=== PATIENT | female | born 2000 | race Caucasian/White ===

== ENCOUNTER → 2021-02-10 11:43 | Outpatient (CLI) | payer OTHER, MEDICAID, SELFPAY ==
--- NOTE | 2021-02-10 11:47 | DI.US.S_ITS ---
PROCEDURE: US OB <= 14 WEEKS FETUS INDICATIONS: DATING AND VIABILITY OUTSIDE/PRIOR DATING DATA: Last menstrual period (LMP): 12/01/2020 LMP-based estimated date of delivery (GA): 09/07/2021. First dating scan (date and location): 02/10/2021. Estimated date of delivery (GA) from first dating scan: 09/26/2021. TECHNIQUE: Real-time scanning was performed of the fetus and maternal pelvic organs, with image documentation. Endovaginal scanning was also performed to better visualize the fetus and maternal ovaries. COMPARISON: None. FINDINGS: Embryo: [place]-rump length measures 12 mm corresponding to 7 weeks 3 days. Mild sac irregularity. Heart rate: 150 Measurement variability in dating: +/- 4 weeks by LMP, +/- 7 days by mean sac diameter (use before 6 weeks gestation if crown-rump length not able to be measured), +/- 5 days by crown-rump length (up to 8 weeks 6 days gestation), +/- 7 days by crown-rump length (up to 13 weeks 6 days gestation). Maternal organs: Ovaries within normal limits, with left corpus luteal cyst . IMPRESSION: Mild sac irregularity; otherwise 10 week 1 day single living IUP identified. Dictated by: Julio César Hill RRA Interpreted: Juan Parekh MD on 02/10/2021 at 12:45 Transcribed by: GIOVANNA on 02/10/2021 at 12:47 Approved by: Juan Parekh M.D. on 02/10/2021 at 16:26
[2021-02-10 13:14] LABS: Add Manual Diff / Slide Review NO; Basophils Absolute Auto 100 /uL (0-100); Basophils Percent Auto 0.8 % (0-2); Eosinophils Absolute Auto 800 /uL (0-450); Eosinophils Percent Auto 7.6 % (2-4); Hematocrit 37.8 % (36-46); Hemoglobin 12.7 g/dL (12.0-16.0); Lymphocytes Absolute Auto 2400 /uL (1100-4500); Lymphocytes Percent Auto 23.3 % (25-40); Mean Corpuscular HGB Conc 33.6 % (30-36); Mean Corpuscular Hemoglobin 28.8 PG (26-34); Mean Corpuscular Volume 85.8 fL (80-100); Monocytes Absolute Auto 700 /uL (0-900); Monocytes Percent Auto 6.7 % (3-14); Neutrophils Absolute Auto 6200 /uL (1500-7000); Neutrophils Percent Auto 61.6 % (50-75); Platelet Count 279 X10^3/uL (150-400); Red Blood Cell Count 4.41 X10^6/uL (4.0-5.2); Red Cell Distribution Width 13.4 % (11.6-14.8); White Blood Cell Count 10.1 X10^3/uL (4.5-11.0)
[2021-02-10 14:33] LABS: Appearance Urine UA CLEAR; Bilirubin Urine UA NEGATIVE (NEGATIVE); Color Urine UA YELLOW; Glucose Urine UA NEGATIVE (Negative); Ketones Urine UA NEGATIVE (NEGATIVE); Leukocyte Esterase Urine UA NEGATIVE (NEGATIVE); Nitrite Urine UA NEGATIVE (Negative); Occult Blood Urine UA NEGATIVE (Negative); Protein Urine UA NEGATIVE (Negative); Specific Gravity Urine UA 1.015 (1.000-1.035); Urobilinogen Urine UA 0.2 E.U./dL (0.2)
[2021-02-10 20:49] LABS: HIV 1 & 2 Ab/Ag 4th Gen Combo NEGATIVE (NEGATIVE); Hep C Virus Ab w/Reflex Quant NEGATIVE s/c (NEGATIVE); Hepatitis B Surface Antigen NEGATIVE s/c (NEGATIVE); Rubella Antibody IgG 14.9 IU/mL (>15)
[2021-02-11 06:36] LABS: RPR Screen Non Reactive (Non Reactive)
[2021-02-11 08:09] LABS: Varicella IgG Antibody <135 index (Immune >165)
== END ==
PROVIDERS: Referring Provider Obstetrics & Gynecology; Visit Provider Obstetrics & Gynecology
DX: Z34.01 Encounter for supervision of normal first pregnancy, first trimester (principal); Z3A.10 10 weeks gestation of pregnancy
CPT/HCPCS: 36415; 76801; 76817; 80055; 81003; 86787; 86803; 86850; 86900; 86901; 87086; 87389

== ENCOUNTER → 2021-02-27 12:23 | Outpatient (CLI) | payer OTHER, MEDICAID, SELFPAY ==
[2021-02-27 16:51] LABS: Urine N gonorrhoeae NOT DETECTED
[2021-02-27 16:57] LABS: Urine Chlamydia NOT DETECTED
== END ==
PROVIDERS: Visit Provider Obstetrics & Gynecology
DX: Z34.01 Encounter for supervision of normal first pregnancy, first trimester (principal); Z11.3 Encounter for screening for infections with a predominantly sexual mode of transmission; Z3A.09 9 weeks gestation of pregnancy
CPT/HCPCS: 87491; 87591

== ENCOUNTER → 2021-06-19 12:56 | Outpatient (CLI) | payer OTHER, MEDICAID, SELFPAY ==
[2021-06-19 20:31] LABS: COVID19 - ORCAS (NP or Nasal) Negative (Negative)
== END ==
PROVIDERS: PCP Physician Assistant; Referring Provider Physician Assistant; Visit Provider Physician Assistant
DX: Z20.822 Contact with and (suspected) exposure to COVID-19 (principal)
CPT/HCPCS: U0003

== ENCOUNTER 2021-06-22 18:36 | Observation (INO) | payer OTHER, MEDICAID, SELFPAY ==
--- NOTE | 2021-06-22 18:49 | DI.US.S_ITS ---
PROCEDURE: US OB TRANSVAGINAL INDICATIONS: CERVICAL LENGTH OUTSIDE/PRIOR DATING DATA: Last menstrual period (LMP): 12/01/20. LMP-based estimated date of delivery (GA): 09/07/21. First dating scan (date and location): 02/10/21. Estimated date of delivery (GA) from first dating scan: 09/26/21. TECHNIQUE: Real-time scanning was performed of the fetus, with image documentation. COMPARISON: None. FINDINGS: A single living intrauterine gestation is present. Presentation: breech. Placenta: Placental position is anterior right, without previa. Amniotic fluid index: 10.8 cm, normal range is 5-24 cm. Single deepest vertical pocket is 3.3 cm. heart rate: 147 beats per minute. Maternal cervical canal: 2.2 cm/2.6 cm long on 2 measurements. Normal lower limit is 2.5 cm. There is a small amount of endocervical fluid along the length of the cervix. There is mild V-shaped funneling at the internal cervical os. Estimated gestational age from initial scan: 26 weeks 2 days. IMPRESSION: 1. Single living intrauterine redemonstrated in breech presentation. 2. Short cervix with endocervical fluid and mild V-shaped funneling at the internal cervical os. Dictated by: Thomas Bianchi M.D. on 06/22/2021 at 20:20 Approved by: Thomas Bianchi M.D. on 06/22/2021 at 20:34
--- NOTE | 2021-06-22 19:09 | PM.OBTRLD ---
Visit Information Visit Information Date of evaluation: 06/22/21 Primary OB Provider: Michelle Hills On-call OB Provider: Renata Simpson Reason for Evaluation: Yes pre-term labor Comments/Additional reasons for admission: 21YO @ 26wks 2 days by 7wk US. Regular cramping 6-8x/hr since early afternoon. Cramping slowed a little with PO hydration, then intensified again. +FM. No VB or LOF. Established PN care w/ @ [facility] w/ 7wk dating US and full PN panel. Was then lost to care until episode of contractions warranted helicopter medical flight from [facility] to [facility]. Had anatomy scan US which revealed CL of 2.5cm w/ funneling. She was discharged from [facility] on progesterone 200mg PO. Betamethasone was NOT given. Patient then established care w/ [facility] in [place] on 06/17/21 and was referred to M. Has not yet been seen by M. , Jaison is present and supportive. Vital Signs Vital Signs: BP 123/64mmHg, HR 71 bpm, T 36.8C Temporal [facility] Medical History Acne (~2012) ADHD Allergic rhinitis Anxiety (~2013) Asthma Bronchitis Chronic post-traumatic stress disorder (PTSD) Depression (~2013) Endometriosis (~2018) Fatigue History of irregular heartbeat Irregular menstrual cycle (~2012) Mitral valve prolapse Painful menstrual periods (~2012) Pneumonia PTSD (post-traumatic stress disorder) (~2013) Surgical History Anesthesia [place] teeth extracted Family History Father ADD (attention deficit disorder) Healthy adult male Mother Irregular heart rate Hypertension Anxiety Mental health problem Bipolar 1 disorder Mitral valve prolapse Grandfather History of prediabetes Breakdown of skin tissue Grandmother Enlarged heart Arthritis Chronic pain Endometriosis Fibroids Anxiety Grandfather Cancer Kidney failure COVID-19 Back pain History of ETOH abuse Grandmother No problems noted. Sister Anxiety Sister No problems noted. 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[employer]) current occupational exposures/hazards: No ellis/bahai: Oriental Orthodox special ellis needs: Yes (Would appreciate a Hot Mill Supervisor to do the Last Rites, if it came to it.) Smoking Status: Never smoker second hand exposure: No alcohol intake: former (pre- : from [id number] social ) substance use type: does not use Review of Systems Review of Systems ROS: Yes All systems reviewed with the patient and are negative except as otherwise documented Exam Vital Signs (past 8 hours): BP 123/64mmHg, HR 71bpm, T 36.8 C temporal External Female Exam: normal external appearance Speculum Exam - Vagina: normal appearance of the vagina Speculum Exam - Cervix: cervical os open (0.5-1 cm visually) and nulliparous OB/External & Speculum: cervical os open (0.5-1 cm visually) Presentation: full/complete breech Other: fFN collected and sent [facility] US OB transvaginal- cervical length: My impression: television script writer reported 2 measurements: 2.19cm then 2.57cm. DESTINY: 10.9cm. Breech presentation. Formal report pending. Labs Labs: fFN- NEGATIVE (resulted prior to transfer) GBS PCR and GBS culture pending Evaluation Evaluation Baseline heart rate: 145 monitor accelerations: Present Monitor Decelerations: Absent Diagnosis, Plan/Disposition Final Diagnosis (1) labor: Status: Acute Plan/Disposition Plan: contractions with incremental cervical change. Betamethasone 12mg IM given. IV started with 1L LR IVFB and MgSO4 4 gram load initiated for transport. Consulted Dr. Porter @ [facility] who is in agreement with plan of care and accepts transfer of care. Transfer by ambulance initiated. OB Disposition: tertiary care transfer
[2021-06-22] MEDS: LACTATED RINGERS 1,000 ML 1000 ML IV (19:51)
[2021-06-22] MEDS: BETAMETHASONE 30 MG/5 ML MDV 12 MG IM (19:52)
[2021-06-22 20:29] LABS: Fetal Fibronectin Negative
[2021-06-22] MEDS: LACTATED RINGERS 1,000 ML 150 ML IV (20:39)
[2021-06-22] MEDS: MAGNESIUM SULFATE 4 GM/100 ML PIGGYBACK IV (20:39)
[2021-06-22 20:43] LABS: Appearance Urine UA CLEAR; Bilirubin Urine UA NEGATIVE (NEGATIVE); Color Urine UA YELLOW; Glucose Urine UA TRACE g/dL (Negative); Ketones Urine UA NEGATIVE (NEGATIVE); Leukocyte Esterase Urine UA NEGATIVE (NEGATIVE); Nitrite Urine UA NEGATIVE (Negative); Occult Blood Urine UA NEGATIVE (Negative); Protein Urine UA NEGATIVE (Negative); Urobilinogen Urine UA 0.2 E.U./dL (0.2)
[2021-06-22 20:57] LABS: Bacteria Urine None Seen; Culture Indicated Urine Cult Not Indicated; RBC Urine None Seen (0-5/HPF); Squamous Epithelial Cell Urine 0-1 /HPF (0-5/HPF); WBC Urine 0-1/HPF (0-5/HPF)
[2021-06-23 03:57] LABS: Strep Grp B PCR NEG for Grp B Strep
== END 2021-06-22 23:00 | disposition home or self-care (01) ==
PROVIDERS: Admitting Provider Nurse Practitioner Obstetrics & Gynecology; PCP Physician Assistant; Referring Provider Nurse Practitioner Obstetrics & Gynecology; Visit Provider Nurse Practitioner Obstetrics & Gynecology
DX: O60.02 Preterm labor without delivery, second trimester (principal); Z3A.26 26 weeks gestation of pregnancy
CPT/HCPCS: 59050; 76817; 81001; 82731; 87081; 87653; G0378; G0379; J0702; J3475

== ENCOUNTER 2021-06-25 09:02 | Emergency (ER) | payer OTHER, MEDICAID, SELFPAY ==
[2021-06-25] VITALS (14 sets, daily range): BP systolic 109–132; BP diastolic 55–76; PULSE 57–73; RESP 16–32; TEMP 36.9; O2SAT 97–100; BMI 24.4
[2021-06-25 09:38] LABS: Add Manual Diff / Slide Review NO; Basophils Absolute Auto 0 /uL (0-100); Basophils Percent Auto 0.2 % (0-2); Eosinophils Absolute Auto 100 /uL (0-450); Eosinophils Percent Auto 0.5 % (2-4); Hematocrit 32.4 % (36-46); Hemoglobin 10.9 g/dL (12.0-16.0); Lymphocytes Absolute Auto 2900 /uL (1100-4500); Lymphocytes Percent Auto 19.6 % (25-40); Mean Corpuscular HGB Conc 33.6 % (30-36); Mean Corpuscular Hemoglobin 29.7 PG (26-34); Mean Corpuscular Volume 88.2 fL (80-100); Monocytes Absolute Auto 1300 /uL (0-900); Monocytes Percent Auto 8.4 % (3-14); Neutrophils Absolute Auto 10600 /uL (1500-7000); Neutrophils Percent Auto 71.3 % (50-75); Platelet Count 296 X10^3/uL (150-400); Red Blood Cell Count 3.68 X10^6/uL (4.0-5.2); Red Cell Distribution Width 13.4 % (11.6-14.8); White Blood Cell Count 14.9 X10^3/uL (4.5-11.0)
[2021-06-25 09:49] LABS: D Dimer 1048 ng/mL (<230)
[2021-06-25 10:02] LABS: Alanine Aminotransferase 14 IU/L (<35); Albumin 3.8 g/dL (3.5-5.0); Albumin Globulin Ratio 1.2 (1.0-2.8); Alkaline Phosphatase 70 U/L (38-126); Aspartate Aminotransferase 24 IU/L (14-36); BUN Creatinine Ratio 10.4 (6-22); Bilirubin Total 0.3 mg/dL (0.2-1.3); Blood Urea Nitrogen 5 mg/dL (7-17); Calcium 8.9 mg/dL (8.4-10.2); Carbon Dioxide 25 mmol/L (22-32); Chloride 107 mmol/L (98-107); Estimated Glomerular Filt Rate > 60.0 mL/min (>60); Globulin 3.1 g/dL (1.7-4.1); Glucose 83 mg/dL (70-100); HEMOLYSIS < 15 (0-50); Potassium 3.7 mmol/L (3.4-5.1); Sodium 138 mmol/L (137-145); Total Protein 6.9 g/dL (6.3-8.2)
[2021-06-25 10:55] LABS: Appearance Urine UA CLEAR; Bilirubin Urine UA NEGATIVE (NEGATIVE); Color Urine UA YELLOW; Glucose Urine UA NEGATIVE (Negative); Ketones Urine UA NEGATIVE (NEGATIVE); Leukocyte Esterase Urine UA NEGATIVE (NEGATIVE); Nitrite Urine UA NEGATIVE (Negative); Occult Blood Urine UA NEGATIVE (Negative); Protein Urine UA NEGATIVE (Negative); Urobilinogen Urine UA 0.2 E.U./dL (0.2)
[2021-06-25 11:00] LABS: Bacteria Urine Moderate (10-30); RBC Urine 0-1/HPF (0-5/HPF); Squamous Epithelial Cell Urine 1-5 /HPF (0-5/HPF); WBC Urine 0-1/HPF (0-5/HPF)
[2021-06-25 11:01] LABS: Culture Indicated Urine Cult Not Indicated
--- NOTE | 2021-06-25 11:14 | ED.GENADULT ---
HPI - General Adult General Chief complaint: Shortness of Breath/Dyspnea Stated complaint: sob /dizzy Time Seen by Provider: 06/25/21 09:16 Source: patient Mode of arrival: Ambulatory History of Present Illness HPI narrative: 21-year-old with recent hospital admission for pre term labor currently at 26 weeks gestational age presents with shortness of breath and central chest tightness that is worsened over the last 24 hours. She was hospitalized over last week with pre term labor. She tested negative for COVID yesterday does not have any fever. She is not complaining of palpitations. She notes that she tried her inhaler and it was not particularly effective in alleviating her sense of dyspnea. She does not note any lower extremity edema. On arrival she is not tachycardic or hypoxic but does look visibly dyspneic Related Data Home Medications Medication Instructions Recorded Confirmed albuterol sulfate 90 mcg/actuation 2 puff INHALATION Q6H PRN 02/20/21 02/20/21 aerosol inhaler prenat.vits,eleanor,[id number]-[id number] 1 tab PO DAILY 02/20/21 02/20/21 Previous Rx's Medication Instructions Recorded citalopram 10 mg tablet (Celexa) 10 mg PO DAILY #30 tab 02/27/21 albuterol sulfate 90 mcg/actuation 2 puff INHALATION 6XD PRN #8.5 g 06/25/21 aerosol inhaler Allergies Allergy/AdvReac Type Severity Reaction Status Date / Time Penicillins AdvReac Severe Bad hives Verified 02/27/21 12:10 that last for weeks Review of Systems Review of Systems Narrative: Remainder of complete review of systems is otherwise unremarkable except for that included in the HPI. Patient History Medical History Acne (~2012) ADHD Allergic rhinitis Anxiety (~2013) Asthma Bronchitis Chronic post-traumatic stress disorder (PTSD) Depression (~2013) Endometriosis (~2017) Fatigue History of irregular heartbeat Irregular menstrual cycle (~2012) Mitral valve prolapse Painful menstrual periods (~2012) Pneumonia PTSD (post-traumatic stress disorder) (~2013) Surgical History Anesthesia [place] teeth extracted Family History Father ADD (attention deficit disorder) Healthy adult male Mother Irregular heart rate Hypertension Anxiety Mental health problem Bipolar 1 disorder Mitral valve prolapse Grandfather History of prediabetes Breakdown of skin tissue Grandmother Enlarged heart Arthritis Chronic pain Endometriosis Fibroids Anxiety Grandfather Cancer Kidney failure COVID-19 Back pain History of ETOH abuse Grandmother No problems noted. Sister Anxiety Sister No problems noted. 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[employer]) current occupational exposures/hazards: No ellis/sikh: Faith special ellis needs: Yes (Would appreciate a Funeral Car Chauffeur to do the Last Rites, if it came to it.) Smoking Status: Never smoker second hand exposure: No alcohol intake: former (pre- : from [employer] social ) substance use type: does not use Smoking Status: Never smoker Substance Use Type: does not use Exam Initial Vital Signs Initial Vital Signs: Vital Signs Pulse Rate 64 06/25/21 09:16 Respiratory Rate 19 06/25/21 09:16 Blood Pressure 132/68 06/25/21 09:16 Pulse Oximetry 99 06/25/21 09:16 General: Anxious appearing visibly dyspneic but Able to give a complete and coherent history. Well-nourished well-developed HEENT: Moist mucous membranes, normal sclera with reactive pupils, Neck: No JVD, supple Respiratory: Lungs are clear to auscultation, no wheezing no rales no rhonchi. Full and symmetrical air movement Cardiac: Regular rate and rhythm no murmurs no bruits Abdomen: Soft, gravid, nontender, good bowel tones, no flank pain Skin: Warm and dry, no rashes Neurologic: Grossly neurologically intact with no obvious asymmetries or abnormalities Extremities: No trauma, well perfused Psych: Cooperative, appropriate insight and affect heart tones at 150 Course Orders Ordered: ED Orders 06/25/21 09:05 Complete Blood Count AUTO DIFF Stat Comprehensive Metabolic Panel Stat D Dimer Stat 06/25/21 10:30 Urinalysis and Microscopic Stat 06/25/21 11:40 COVID19 -Nasal swab/Pre-Proc Stat Discontinued Medications Albuterol (Albuterol 2.5 Mg/3 Ml Neb (Adult)) 2.5 mg INH NOW ONE Stop: 06/25/21 11:42 Last Admin: 06/25/21 12:29 Dose: 2.5 mg Documented by: VANDANA Vital Signs Vital signs: Vital Signs - 8 hr 06/25/21 09:16 06/25/21 09:20 06/25/21 09:30 Temperature 98.4 F Pulse Rate 64 64 58 L Respiratory Rate 19 22 18 Blood Pressure 132/68 132/68 122/76 Pulse Oximetry 99 100 100 06/25/21 10:00 06/25/21 10:30 06/25/21 11:00 Temperature Pulse Rate 57 L 64 57 L Respiratory Rate 26 H 19 22 Blood Pressure 109/63 109/68 110/58 L Pulse Oximetry 98 98 99 06/25/21 11:20 06/25/21 11:30 06/25/21 11:54 Temperature Pulse Rate 58 L Respiratory Rate 32 H 22 Blood Pressure 112/67 Pulse Oximetry 99 06/25/21 12:00 06/25/21 12:35 Temperature Pulse Rate 60 66 Respiratory Rate 21 16 Blood Pressure 112/62 Pulse Oximetry 98 98 Medical Decision Making Lab Data Result diagrams: 06/25/21 09:05 06/25/21 09:05 Labs: Lab Results 06/25/21 06/25/21 06/25/21 Range/Units 09:05 09:05 09:05 WBC 14.9 H (4.5-11.0) X10^3/uL RBC 3.68 L (4.0-5.2) X10^6/uL Hgb 10.9 L (12.0-16.0) g/dL Hct 32.4 L (36-46) % MCV 88.2 (80-100) fL MCH 29.7 (26-34) PG MCHC 33.6 (30-36) % RDW 13.4 (11.6-14.8) % Plt Count 296 (150-400) X10^3/uL Neut % (Auto) 71.3 (50-75) % Lymph % (Auto) 19.6 L (25-40) % Swain % (Auto) 8.4 (3-14) % Eos % (Auto) 0.5 L (2-4) % Baso % (Auto) 0.2 (0-2) % Neut # (Auto) 60441 H (9647-5425) /uL Lymph # (Auto) 2900 (8187-0590) /uL Swain # (Auto) 1300 H (0-900) /uL Eos # (Auto) 100 (0-450) /uL Baso # (Auto) 0 (0-100) /uL D-Dimer 1048 H (<230) ng/mL Sodium 138 (137-145) mmol/L Potassium 3.7 (3.4-5.1) mmol/L Chloride 107 (98-107) mmol/L Carbon Dioxide 25 (22-32) mmol/L BUN 5 L (7-17) mg/dL Creatinine 0.48 L (0.52-1.04) mg/dL Estimated GFR > 60.0 (>60) mL/min BUN/Creatinine Ratio 10.4 (6-22) Glucose 83 (70-100) mg/dL Calcium 8.9 (8.4-10.2) mg/dL Total Bilirubin 0.3 (0.2-1.3) mg/dL AST 24 (14-36) IU/L ALT 14 (<35) IU/L Alkaline Phosphatase 70 (38-126) U/L Total Protein 6.9 (6.3-8.2) g/dL Albumin 3.8 (3.5-5.0) g/dL Globulin 3.1 (1.7-4.1) g/dL Albumin/Globulin Ratio 1.2 (1.0-2.8) Urine Color Urine Appearance Urine pH (4.5-8.0) Ur Specific [place] (1.000-1.035) Urine Protein (Negative) Urine Glucose (UA) (Negative) g/dL Urine Ketones (NEGATIVE) Urine Occult Blood (Negative) Urine Nitrate (Negative) Urine Bilirubin (NEGATIVE) Urine Urobilinogen (0.2) E.U./dL Ur Leukocyte Esterase (NEGATIVE) Urine RBC (0-5/HPF) Urine WBC (0-5/HPF) Ur Squamous Epith Cells (0-5/HPF) Urine Bacteria (None) Ur Culture Indicated? SARS-CoV-2 (PCR) (Negative) 06/25/21 06/25/21 Range/Units 10:30 11:40 WBC (4.5-11.0) X10^3/uL RBC (4.0-5.2) X10^6/uL Hgb (12.0-16.0) g/dL Hct (36-46) % MCV (80-100) fL MCH (26-34) PG MCHC (30-36) % RDW (11.6-14.8) % Plt Count (150-400) X10^3/uL Neut % (Auto) (50-75) % Lymph % (Auto) (25-40) % Swain % (Auto) (3-14) % Eos % (Auto) (2-4) % Baso % (Auto) (0-2) % Neut # (Auto) (7381-3394) /uL Lymph # (Auto) (8175-4409) /uL Swain # (Auto) (0-900) /uL Eos # (Auto) (0-450) /uL Baso # (Auto) (0-100) /uL D-Dimer (<230) ng/mL Sodium (137-145) mmol/L Potassium (3.4-5.1) mmol/L Chloride (98-107) mmol/L Carbon Dioxide (22-32) mmol/L BUN (7-17) mg/dL Creatinine (0.52-1.04) mg/dL Estimated GFR (>60) mL/min BUN/Creatinine Ratio (6-22) Glucose (70-100) mg/dL Calcium (8.4-10.2) mg/dL Total Bilirubin (0.2-1.3) mg/dL AST (14-36) IU/L ALT (<35) IU/L Alkaline Phosphatase (38-126) U/L Total Protein (6.3-8.2) g/dL Albumin (3.5-5.0) g/dL Globulin (1.7-4.1) g/dL Albumin/Globulin Ratio (1.0-2.8) Urine Color Yellow Urine Appearance Clear Urine pH 7.0 (4.5-8.0) Ur Specific [place] 1.010 (1.000-1.035) Urine Protein Negative (Negative) Urine Glucose (UA) Negative (Negative) g/dL Urine Ketones Negative (NEGATIVE) Urine Occult Blood Negative (Negative) Urine Nitrate Negative (Negative) Urine Bilirubin Negative (NEGATIVE) Urine Urobilinogen 0.2 (0.2) E.U./dL Ur Leukocyte Esterase Negative (NEGATIVE) Urine RBC 0-1/hpf (0-5/HPF) Urine WBC 0-1/hpf (0-5/HPF) Ur Squamous Epith Cells 1-5 /hpf (0-5/HPF) Urine Bacteria Moderate (10-30) H (None) Ur Culture Indicated? Cult not indicated SARS-CoV-2 (PCR) Negative (Negative) MDM Narrative Medical decision making narrative: 21-year-old woman at 26 weeks gestational age with recent hospitalization for pre term labor comes in with dyspnea. She does have a history of mild exercise-induced asthma. She used her inhaler, which she really needs, this morning and found that was not helpful in relieving her dyspnea. On exam she is not tachypneic, blood pressure is reassuring. Labs do not suggest significant anemia, infection, cardiomyopathy, PE is low given her D-dimer findings. D-dimer is elevated at 1048, within expected conservative ranges for D-dimer in 2nd trimester range being 298-1653ng/mL as well as low heart rate and no evidence of hypoxia. At this time I do not have an alternate explanation for her dyspnea. She did do a nebulizer with albuterol in the emergency department and feels that the pressure was somewhat relieved. And finding no life-threatening explanation for her symptoms. Labor and delivery nurses have come over and confirmed reassuring heart tones. She is not having increased contractions and cervix is not examined in the emergency department At this time she is safe for home discharge and will suggest that she use her albuterol 3 times a day and when she is having increased chest tightness. Discharge Plan Departure Patient Disposition: Home Clinical Impression: Dyspnea Qualifiers: Dyspnea type: shortness of breath Qualified Code(s): R06.02 - Shortness of breath Asthma Qualifiers: Asthma severity: mild Asthma persistence: intermittent Asthma complication type: uncomplicated Qualified Code(s): J45.20 - Mild intermittent asthma, uncomplicated Instructions: DI for Asthma -- Adult Activity Restrictions/Additional Instructions: Thank you for coming in today I did not find any life-threatening explanations for your shortness of breath today. Specifically there is no blood clot in your lungs, no heart attack, no severe anemia and nothing that would require additional hospitalization or interventions. Once again, you do not have COVID You stated that the dyspnea was a bit less after the nebulizer treatment in the emergency department. I would recommend that you use your albuterol 3 times a day over the next week and you can use an additional 2 puffs if your feeling short of breath as needed. A prescription was electronically transmitted to [facility] for you. If you feel that you are getting worse, please return to the ER Prescriptions: New albuterol sulfate 90 mcg/actuation HFA aerosol inhaler 2 puff inhalation 6XD PRN (Reason: shortness of breath or wheezing) Qty: 8.5 0RF No Action prenat.vits,eleanor,qdr-qavx-copik Tablet 1 tab PO DAILY 0RF albuterol sulfate 90 mcg/actuation HFA aerosol inhaler 2 puff inhalation Q6H PRN0RF citalopram [Celexa] 10 mg tablet 10 mg PO DAILY Qty: 30 6RF Referrals: Amanda Johns PA-C [Primary Care Provider] -
[2021-06-25 12:14] LABS: COVID19 -Nasal RAPID Negative (Negative)
[2021-06-25] MEDS: ALBUTEROL 2.5 MG/3 ML NEB (ADULT) INH (12:29)
--- NOTE | 2021-06-25 13:15 | PC.NURSE ---
MEGAN Warren from center reports baby's heart rate is in the 150s. Notified MEGAN Tao.
== END 2021-06-25 13:45 | disposition home or self-care (01) ==
PROVIDERS: Emergency Provider Emergency Medicine; PCP Physician Assistant
DX: O26.892 Other specified pregnancy related conditions, second trimester (principal); J45.20 Mild intermittent asthma, uncomplicated; R06.00 Dyspnea, unspecified; Z3A.26 26 weeks gestation of pregnancy; Z20.822 Contact with and (suspected) exposure to COVID-19
CPT/HCPCS: 36415; 80053; 81001; 85025; 85379; 87635; 94640; 99283; C9803; J7613

== ENCOUNTER → 2021-07-12 07:05 | Outpatient (CLI) | payer OTHER, MEDICAID, SELFPAY ==
[2021-07-12 08:03] LABS: Hemoglobin 11.4 g/dL (12.0-16.0); Mean Corpuscular HGB Conc 33.5 % (30-36); Mean Corpuscular Hemoglobin 29.4 PG (26-34); Mean Corpuscular Volume 87.7 fL (80-100); Platelet Count 259 X10^3/uL (150-400); Red Blood Cell Count 3.88 X10^6/uL (4.0-5.2); Red Cell Distribution Width 13.4 % (11.6-14.8); White Blood Cell Count 7.6 X10^3/uL (4.5-11.0)
[2021-07-12 08:20] LABS: Glucose Fasting 82 mg/dL (70-100)
[2021-07-12 09:17] LABS: Glucose 1 Hour 126 mg/dL (70-170)
[2021-07-12 09:23] LABS: Glucose Tol Interpretation INTERPRETATION
[2021-07-12 11:15] LABS: Glucose 2 Hour 115 mg/dL (70-140)
== END ==
PROVIDERS: PCP Physician Assistant; Referring Provider Nurse Practitioner Obstetrics & Gynecology; Visit Provider Nurse Practitioner Obstetrics & Gynecology
DX: Z34.90 Encounter for supervision of normal pregnancy, unspecified, unspecified trimester (principal); Z3A.26 26 weeks gestation of pregnancy
CPT/HCPCS: 36415; 82951; 82952; 85027

== ENCOUNTER 2021-08-10 14:25 | Observation (INO) | payer OTHER, MEDICAID, SELFPAY ==
--- NOTE | 2021-08-10 14:48 | P.TNLD_ITS ---
Visit Information Visit Information Date of evaluation: 08/10/21 Primary OB Provider: Michelle Hills On-call OB Provider: Renata Simpson Reason for Evaluation: Yes pre-term labor Comments/Additional reasons for admission: 21YO @ 33wks 2days by 7wk US.? Has struggled with contraction since 22wks of , previously admitted at 22 and 28 weeks for evaluation and received betamethasone @ 28 weeks. . Contractions today have been worse that she's previously experienced and took a ferry off [facility] at 1245 today. +FM.? No VB or LOF.? No urinary sx or abnormal vaginal discharge. Vital Signs Vital Signs: BP 115/64mmHg, HR 66bpm, T 36.4C Temporal PFSH Medical History Acne (~2012) ADHD Allergic rhinitis Anxiety (~2013) Asthma Bronchitis Chronic post-traumatic stress disorder (PTSD) Depression (~2013) Endometriosis (~2017) Fatigue History of irregular heartbeat Irregular menstrual cycle (~2012) Mitral valve prolapse Painful menstrual periods (~2012) Pneumonia PTSD (post-traumatic stress disorder) (~2013) Surgical History Anesthesia [place] teeth extracted Family History Father ADD (attention deficit disorder) Healthy adult male Mother Irregular heart rate Hypertension Anxiety Mental health problem Bipolar 1 disorder Mitral valve prolapse Grandfather History of prediabetes Breakdown of skin tissue Grandmother Enlarged heart Arthritis Chronic pain Endometriosis Fibroids Anxiety Grandfather Cancer Kidney failure COVID-19 Back pain History of ETOH abuse Grandmother No problems noted. Sister Anxiety Sister No problems noted. 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[employer]) current occupational exposures/hazards: No ellis/confucianist: Adventism special ellis needs: Yes (Would appreciate a Pharmacy Picking Technician to do the Last Rites, if it came to it.) Smoking Status: Never smoker second hand exposure: No alcohol intake: former (pre- : from [id number] social ) substance use type: does not use Review of Systems Review of Systems ROS: Yes All systems reviewed with the patient and are negative except as otherwise documented Exam Vital Signs (past 8 hours): see above Presentation: vertex Evaluation Evaluation Baseline heart rate: 135 Variability: Moderate (11-25) monitor accelerations: Present Monitor Decelerations: Absent Contraction Frequency (minutes): 5 Uterine Contraction Intensity: Mild Category of Tracing: Reactive Status: Category l Cervical dilation (cm): 1 Cervical effacement (%): 50 station: -2 Comments: fFN- NEGATIVE Repeat CE after 3 hours- unchanged Diagnosis, Plan/Disposition Final Diagnosis (1) uterine contractions in third trimester, antepartum: Status: Acute Plan/Disposition Plan: Reassurance given for no labor. Enocuraged continued minimal activity, rest and hydration. Work note provided. Discussed this level of intensity as her nw baseline and encouraged her to call if regular contractions occur that are stronger than today. RTC as previously scheduled.
[2021-08-10 15:33] LABS: Fetal Fibronectin Negative
[2021-08-10 15:57] LABS: Appearance Urine UA CLEAR; Bilirubin Urine UA NEGATIVE (NEGATIVE); Color Urine UA YELLOW; Glucose Urine UA NEGATIVE (Negative); Ketones Urine UA NEGATIVE (NEGATIVE); Leukocyte Esterase Urine UA TRACE (NEGATIVE); Nitrite Urine UA NEGATIVE (Negative); Occult Blood Urine UA NEGATIVE (Negative); Protein Urine UA NEGATIVE (Negative); Urobilinogen Urine UA 0.2 E.U./dL (0.2)
[2021-08-10 16:18] LABS: pH Urine UA 7.5 (4.5-8.0)
[2021-08-10 16:19] LABS: Bacteria Urine Few (2-10); Culture Indicated Urine Specimen Cultured; RBC Urine None Seen (0-5/HPF); Squamous Epithelial Cell Urine 0-1 /HPF (0-5/HPF); Transitional Epi Cells Urine 0-1/HPF (0-5/HPF); WBC Urine 0-1/HPF (0-5/HPF)
[2021-08-10] MEDS: LACTATED RINGERS 1,000 ML 1000 ML IV (17:00)
[2021-08-10 18:14] LABS: Appearance Urine UA CLEAR; Bilirubin Urine UA NEGATIVE (NEGATIVE); Color Urine UA YELLOW; Glucose Urine UA NEGATIVE (Negative); Ketones Urine UA NEGATIVE (NEGATIVE); Leukocyte Esterase Urine UA NEGATIVE (NEGATIVE); Nitrite Urine UA NEGATIVE (Negative); Occult Blood Urine UA NEGATIVE (Negative); Protein Urine UA NEGATIVE (Negative); Urobilinogen Urine UA 0.2 E.U./dL (0.2)
[2021-08-10 18:23] LABS: pH Urine UA 7.5 (4.5-8.0)
[2021-08-10 18:25] LABS: Bacteria Urine None Seen; Culture Indicated Urine Cult Not Indicated; RBC Urine None Seen (0-5/HPF); Squamous Epithelial Cell Urine 0-1 /HPF (0-5/HPF); WBC Urine 0-1/HPF (0-5/HPF)
== END 2021-08-10 18:36 | disposition home or self-care (01) ==
PROVIDERS: Admitting Provider Nurse Practitioner Obstetrics & Gynecology; PCP Physician Assistant; Referring Provider Nurse Practitioner Obstetrics & Gynecology; Visit Provider Nurse Practitioner Obstetrics & Gynecology
DX: O47.03 False labor before 37 completed weeks of gestation, third trimester (principal); Z3A.33 33 weeks gestation of pregnancy
CPT/HCPCS: 59025; 59050; 81001; 82731; 87086; 96360; G0378; G0379

== ENCOUNTER → 2021-08-31 19:14 | Outpatient (ROUT) | payer OTHER, MEDICAID, SELFPAY | PROVIDERS: PCP Physician Assistant; Visit Provider Nurse Practitioner Obstetrics & Gynecology | DX: Z36.85 Encounter for antenatal screening for Streptococcus B (principal); Z3A.36 36 weeks gestation of pregnancy | CPT/HCPCS: 87081 ==

== ENCOUNTER → 2021-09-04 14:48 | Outpatient (CLI) | payer OTHER, MEDICAID, SELFPAY ==
--- NOTE | 2021-09-04 | DI.US.S_ITS ---
PROCEDURE: US OB LIMITED INDICATIONS: SIZE LESS THAN DATES OUTSIDE/PRIOR DATING DATA: Last menstrual period (LMP): 12/01/2020. LMP-based estimated date of delivery (GA): 09/07/2021 First dating scan (date and location): 02/10/2021 Estimated date of delivery (GA) from first dating scan: 09/26/2021 TECHNIQUE: Real-time scanning was performed of the fetus, with image documentation and biometric measurements. Biophysical profile was also obtained. Endovaginal scanning: Not indicated COMPARISON: 02/10/2021, 06/22/2021. FINDINGS: General: A single living intrauterine gestation is present. Presentation: Vertex. Placenta: Placental position is anterior, without previa. Amniotic fluid index: 8.3 cm, normal range is 5-24 cm. Single deepest vertical pocket is 4.4 cm. heart rate: 136 beats per minute. Maternal cervical canal: Not well seen. head is low in the pelvis. biometrics: Biparietal diameter: 8.9 cm, 36 weeks, 0 day. Head circumference: 32.2 cm, 36 weeks, 2 days. Abdominal circumference: 27.7 cm, 31 weeks, 5 days. Femur length: 6.8 cm, 35 weeks, 0 day. Clinically estimated gestational age: 36 weeks, 6 days. Composite gestational age from present scan: 34 weeks, 5 days. Estimated weight and percentile: 2220 g, 2%. Umbilical artery Doppler: 2.7, 2.4, 2.9 IMPRESSION: 1. Single live intrauterine gestation with fetus in vertex presentation. heart rate is 136 beats per minute. Normal amount of amniotic fluid. Estimated gestational age based on current study is 34 weeks, 5 days. Clinical estimated gestational age is 36 weeks, 6 days. Estimated weight is at 2%. 2. Normal umbilical artery S/D ratio. We strive to produce accurate, complete, and clear reports of imaging services. To assist us in improving patient care, this report was composed using standard report templates and voice recognition software. Therefore, it may contain abnormal punctuation, insertions and/or omissions. Occasional wrong-word or sound-alike substitutions may occur. Though we review the report and make efforts to correct it, we do recommend that the report be read carefully in proper context to recognize any text inaccuracies. Dictated by: Juan Parekh M.D. on 09/04/2021 at 16:38 Approved by: Juan Parekh M.D. on 09/04/2021 at 16:41
== END ==
PROVIDERS: PCP Physician Assistant; Referring Provider Nurse Practitioner Obstetrics & Gynecology; Visit Provider Nurse Practitioner Obstetrics & Gynecology
DX: O26.843 Uterine size-date discrepancy, third trimester (principal); Z3A.34 34 weeks gestation of pregnancy
CPT/HCPCS: 76815

== ENCOUNTER 2021-09-04 17:20 | Inpatient (IN) | payer OTHER, MEDICAID, SELFPAY ==
--- NOTE | 2021-09-04 19:00 | PM.OBHP.1 ---
OB HPI Date/Time Date of admission: 09/04/21 Date Patient Seen: 09/04/21 Time Patient Seen: 18:00 History of Present Condition Chief complaint: : 1 Para: 0 Estimated Date of Delivery: 09/26/21 Estimated Gestational Age (weeks): 36.6 Narrative: Salazar Alves is a 21 year old female @ [id number] by 7wk US who presents for IOL after US today diagnosed IUGR with EFW of 2220grams (2%). Transferred into care with CNM @ 25wks EGA. Struggled with contractions requiring observation/admission x 2 @ 25and 29 wks. Completed progesterone @ 36wks EGA. Received MgSO4 and betamethasone x2 doses at 29 wks. Cervix then lengthened with limited work and activity. Seen in clinic measuring S<D and referred for growth US today. Salazar is eager for medical IOL and is open to all options for pain relief. Supportive friend, Brianda is with her and , Jaison, is en route. Indications Indication for induction OB: intra-uterine growth restriction History of Present care: limited care, initiated at week # (7), number of visits (5) and pounds weight gain (5) Dating criteria: based on 1st trimester US only Ultrasounds: normal mid trimester US Obstetrical complications: growth restriction Medical complications: respiratory (asthma) and psychiatric (depression, PTSD) Preadmission Labs Blood type: A (+) positive -: Antibody screen: negative, GBS status: negative, HBsAG: negative, HIV: negative and RPR/VDLR: negative -: Chlamydia screen: not detected and Gonorrhea screen: not detected -: Rubella: immune and Varicella: not immune HCT: 34.0 HCAB: negative Narrative: 2hr gtt: 82/126/115 Evaluation Evaluation Baseline heart rate: 135 Variability: Moderate (11-25) monitor accelerations: Present Monitor Decelerations: Absent Contraction Frequency (minutes): 0 Dilation (cm): 1.5 Effacement (%): 80 Dilation: 1-2 cm Effacement: >/=80% station: -1 Position of cervix: posterior Consistency: soft Stevenson score: 8 PFSH Medical History Acne (~2013) ADHD Allergic rhinitis Anxiety (~2013) Asthma Bronchitis Chronic post-traumatic stress disorder (PTSD) Depression (~2013) Endometriosis (~2018) Fatigue History of irregular heartbeat Irregular menstrual cycle (~2012) Mitral valve prolapse Painful menstrual periods (~2012) Pneumonia PTSD (post-traumatic stress disorder) (~2013) Surgical History Anesthesia [place] teeth extracted Family History Father ADD (attention deficit disorder) Healthy adult male Mother Irregular heart rate Hypertension Anxiety Mental health problem Bipolar 1 disorder Mitral valve prolapse Grandfather History of prediabetes Breakdown of skin tissue Grandmother Enlarged heart Arthritis Chronic pain Endometriosis Fibroids Anxiety Grandfather Cancer Kidney failure COVID-19 Back pain History of ETOH abuse Grandmother No problems noted. Sister Anxiety Sister No problems noted. 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[employer]) current occupational exposures/hazards: No ellis/adventism: Mandaeism special ellis needs: Yes (Would appreciate a Leather Production Artisan to do the Last Rites, if it came to it.) Smoking Status: Never smoker second hand exposure: No alcohol intake: former (pre- : from [id number] social ) substance use type: does not use Meds Home Medications and Allergies Home Medications Medication Instructions Recorded Confirmed Type albuterol sulfate 90 mcg/actuation 2 puff INHALATION Q6H PRN 02/20/21 07/28/21 History aerosol inhaler prenat.vits,eleanor,jek-[id number] 1 tab PO DAILY 02/20/21 07/28/21 History albuterol sulfate 90 mcg/actuation 2 puff INHALATION 6XD PRN #8.5 g 06/25/21 07/28/21 Rx aerosol inhaler citalopram 10 mg tablet (Celexa) 20 mg PO DAILY 09/04/21 History citalopram 20 mg tablet 20 mg PO DAILY 09/04/21 09/04/21 History Allergies Allergy/AdvReac Type Severity Reaction Status Date / Time Penicillins AdvReac Severe Bad hives Verified 02/27/21 12:10 that last for weeks Review of Systems Review of Systems ROS: Yes All systems reviewed with the patient and are negative except as otherwise documented OB Exam Narrative Exam Narrative: VS: BP 124/79mmHg, HR 73bpm, T 36.9C Temporal Resp Effort & Inspection: normal respiratory effort Auscultation: clear to auscultation bilaterally Cardio Rate: regular rate Rhythm: regular rhythm Presentation: vertex Assessment and Plan Assessment and Plan Assessment and Plan narrative: A: Late primipara @ 36.6wks IUGR (2%) Cervical ripening indicated GBD prophylaxis not indicated Cat I FHR P: Admit, routine orders. Obtained IOL consent for IUGR and consulted [facility] who agrees w/ plan of care. Muniz balloon placed, pt tolerated procedure well. Plan Muniz balloon, then sleep overnight and begin pitocin tomorrow morning @ 37wks EGA.
[2021-09-04 23:24] LABS: COVID19 -Nasal RAPID Negative (Negative)
[2021-09-05 00:32] LABS: Add Manual Diff / Slide Review NO; Basophils Absolute Auto 100 /uL (0-100); Basophils Percent Auto 0.5 % (0-2); Eosinophils Absolute Auto 400 /uL (0-450); Eosinophils Percent Auto 3.3 % (2-4); Hematocrit 30.7 % (36-46); Hemoglobin 10.5 g/dL (12.0-16.0); Lymphocytes Absolute Auto 2500 /uL (1100-4500); Lymphocytes Percent Auto 22.5 % (25-40); Mean Corpuscular Volume 85.2 fL (80-100); Monocytes Absolute Auto 800 /uL (0-900); Monocytes Percent Auto 6.7 % (3-14); Neutrophils Absolute Auto 7600 /uL (1500-7000); Platelet Count 226 X10^3/uL (150-400); Red Blood Cell Count 3.61 X10^6/uL (4.0-5.2); Red Cell Distribution Width 13.4 % (11.6-14.8); White Blood Cell Count 11.3 X10^3/uL (4.5-11.0)
[2021-09-05 07:28] VITALS: BP 138/86
--- NOTE | 2021-09-05 08:03 | P.DS_ITS ---
History of Present Illness History of Present Illness Date Patient Seen: 09/05/21 Time Patient Seen: 08:03 Date of Onset of Symptoms: 09/04/21 Chief complaint: Narrative: Salazar Alves is a 21 year old female @ [id number] by 7wk US who presented for IOL after US 09/04/21, diagnosed IUGR with EFW of 2220grams (2%). Transferred into care with CNM @ 25wks EGA.? Struggled with contractions requiring observation/admission x 2 @ 25and 29 wks.? Completed progesterone @ 36wks EGA.? Received MgSO4 and betamethasone x2 doses at 29 wks.? Cervix then lengthened with limited work and activity.? Seen in clinic measuring S<D and referred for growth US.? Salazar is eager for medical IOL and is open to all options for pain relief.? is present and supportive. Discharge Providers Provider Date of admission: 09/04/21 17:20 Discharge Date: 09/05/21 Primary care physician: Amanda Johns PA-C Consults: 09/04/21 19:59 Consult to Anesthesiology Urgent Comment: Consulting Provider: Anesthesiologist Reason for consultation: if equested Has provider been notified: No Discharge provider: Michelle Hills CNM Summary Hospital Course Discharge Diagnosis: O36.5930, O99.013, [id number].[id number] Hospital Course: Admitted last night with Muniz balloon placed at 1900, inflated w/ 60mL saline. Muniz balloon came out around 0400. Reactive NST Q4 hours throughout the night. Patient is ready for pitocin for induction. 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 Patient strongly declined transportation by ambulance. Accepting provider is OLMAN Winchester. Status at Discharge Cognitive/behavioral status at discharge: oriented and calm Functional status at discharge: independent ambulation Overall status at discharge: patient is back to baseline Time Spent with Patient Time spent: Less than 30 minutes Exam Vital Signs (past 8 hours): BP 124/79, HR 69bpm, T 98.3F Temporal Presentation: vertex Estimated Weight (lbs): 5 Objective Labs Result Diagrams: 09/05/21 00:15 Labs: Laboratory Results - last 24 hr 0409/05/21 09/05/21 22:20 00:15 00:15 WBC 11.3 H RBC 3.61 L Hgb 10.5 L Hct 30.7 L MCV 85.2 MCH 29.0 MCHC 34.0 RDW 13.4 Plt Count 226 Neut % (Auto) 67.0 Lymph % (Auto) 22.5 L [place] % (Auto) 6.7 Eos % (Auto) 3.3 Baso % (Auto) 0.5 Neut # (Auto) 7600 H Lymph # (Auto) 2500 [place] # (Auto) 800 Eos # (Auto) 400 Baso # (Auto) 100 SARS-CoV-2 (PCR) Negative Blood Type A Positive Antibody Screen Negative [facility] Medical History Acne (~2012) ADHD Allergic rhinitis Anxiety (~2013) Asthma Bronchitis Chronic post-traumatic stress disorder (PTSD) Depression (~2013) Endometriosis (~2017) Fatigue History of irregular heartbeat Irregular menstrual cycle (~2012) Mitral valve prolapse Painful menstrual periods (~2012) Pneumonia PTSD (post-traumatic stress disorder) (~2013) Surgical History Anesthesia [place] teeth extracted Family History Father ADD (attention deficit disorder) Healthy adult male Mother Irregular heart rate Hypertension Anxiety Mental health problem Bipolar 1 disorder Mitral valve prolapse Grandfather History of prediabetes Breakdown of skin tissue Grandmother Enlarged heart Arthritis Chronic pain Endometriosis Fibroids Anxiety Grandfather Cancer Kidney failure COVID-19 Back pain History of ETOH abuse Grandmother No problems noted. Sister Anxiety Sister No problems noted. 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 Patient spouse will drive her directly there. Discharge Plan Discharge Plan Patient Disposition: Home Provider Discharge Comment: Spouse to drive patient to [place] for admission Discharge orders & Medications Prescriptions: Continued prenat.vits,elenaor,oxi-hugx-yttrg Tablet 1 tab PO DAILY 0RF albuterol sulfate 90 mcg/actuation HFA aerosol inhaler 2 puff inhalation Q6H PRN0RF citalopram 20 mg tablet 20 mg PO DAILY 0RF Label Comments: Take 1 tablet By Mouth once a day Discontinued albuterol sulfate 90 mcg/actuation HFA aerosol inhaler 2 puff inhalation 6XD PRN (Reason: shortness of breath or wheezing) Qty: 8.5 0RF citalopram [Celexa] 10 mg tablet 10 mg PO DAILY 0RF Medication counseling provided by Pharmacist: No Follow up/Referrals: Michelle Hills CNM [Advanced Shipping Track Supervisor] - (Follow-up by telehealth 09/18/21 @ 2:15pm Follow-up in office 10/18/21@ 12:45pm) Amanda Johns PA-C [Primary Care Provider] - Diet/Activity/Treatments Diet: Diet as Tolerated and Regular Discharge Data Primary Care Provider: Amanda Johns Attending Provider: Michelle Hills
[2021-09-05 10:04] VITALS: BP 137/72; PULSE 67; RESP 20; TEMP 35.9
--- NOTE | 2021-09-05 12:09 | PM.OBPNLAB ---
Date/Time Date Patient Seen: 09/05/21 Time Patient Seen: 12:09 Pain Control Pain control: epidural Comments: Began breathing through contractions around 0900. Requested epidural at 1040. now resting comfortably with epidural. Product Safety Specialist and partner are present and supportive. VS: BP 111/65mmHg, HR 58bpm, T 36.4C Temporal. BP luis alberto of 97/55 reached shortly after epidural placement, improved w/ position change, additional IVFB. Pelvic Exam Dilation (cm): 3 Effacement (%): 90 station: -1 Amniotic membrane status: Leaking (clear) Contractions Contractions on admission: irregular Monitor mode: External Pitocin rate (mU/min): 0 Contraction frequency (min): 3 Contraction duration (min): 1 Contraction pattern: Regular Status status: Category ll Heart Rate Baseline: 130 Monitor Accelerations: Present Monitor Decelerations: Late Monitor Variability: Moderate Comments: 25 minutes after epidural was placed, 3 coupled contractions and decrease in maternal BP led to recurrent late decelerations. Pitocin was turned off, maternal position changed and additional IVFB was given and FHR recovered. FHR now Cat I. Assessment and Plan Assessment: induction ongoing Plan: continuous present management Comments: Reassess in 4 hours or sooner, PRN.
== END 2021-09-05 10:02 | disposition home or self-care (01) | DRG 566 ==
PROVIDERS: Admitting Provider Nurse Practitioner Obstetrics & Gynecology; PCP Physician Assistant; Referring Provider Nurse Practitioner Obstetrics & Gynecology; Visit Provider Nurse Practitioner Obstetrics & Gynecology
DX: O36.5930 Maternal care for other known or suspected poor fetal growth, third trimester, not applicable or unspecified (principal); Z3A.36 36 weeks gestation of pregnancy; O26.843 Uterine size-date discrepancy, third trimester; O99.343 Other mental disorders complicating pregnancy, third trimester; F32.0 Major depressive disorder, single episode, mild; O99.891 Other specified diseases and conditions complicating pregnancy; J45.909 Unspecified asthma, uncomplicated; Z20.822 Contact with and (suspected) exposure to COVID-19
CPT/HCPCS: 36415; 59025; 59050; 76815; 76819; 85025; 86850; 86900; 86901; 87635; C9803; G0378; G0379

== ENCOUNTER 2021-09-12 14:27 | Emergency (ER) | payer OTHER, MEDICAID, SELFPAY ==
[2021-09-12 15:02] VITALS: BP 129/89; PULSE 84; RESP 18; TEMP 37.1; O2SAT 98
--- NOTE | 2021-09-12 15:21 | DI.US.S_ITS ---
PROCEDURE: US PELVIC COMPLETE INDICATIONS: vaginal bleeding, delivery 09/05 TECHNIQUE: Real-time scanning was performed of the pelvic organs, with image documentation. Additional endovaginal scanning was necessary due to incomplete visualization of the adnexal and endometrial structures by transabdominal scanning. COMPARISON: [facility], US OB LIMITED, 09/04/2021, 15:05. [facility], OB TRANSVAGINAL, 06/22/2021, 19:12. [facility], US OB <= 14 WEEKS FETUS, 02/27/2021, 12:40. [facility], US OB <= 14 WEEKS FETUS, 02/10/2021, 12:15. FINDINGS: Uterus: Uterus is anteverted and mildly increased in size at 11.0 x 6.7 x 7.7 cm. The myometrium is heterogeneous. The endometrium measures 29 mm combined thickness. Endometrium is heterogeneous. Minimal scattered areas of increased vascularity are noted. Ovaries: The right ovary measures 3.6 x 1.7 x 2.1 cm. The left ovary measures 2.6 x 1.5 x 1.9 cm. The ovaries have a normal sonographic appearance. Less than 12 follicles can be seen in each ovary. No adnexal masses are seen. Other: No pathologic free abdominal or pelvic fluid. IMPRESSION: Thickened heterogeneous endometrium with minimal scattered areas of increased vascularity. While retained products of conception cannot be definitively excluded, infection such as endometritis should be considered and short interval ultrasound follow-up obtained. We strive to produce accurate, complete, and clear reports of imaging services. To assist us in improving patient care, this report was composed using standard report templates and voice recognition software. Therefore, it may contain abnormal punctuation, insertions and/or omissions. Occasional wrong-word or sound-alike substitutions may occur. Though we review the report and make efforts to correct it, we do recommend that the report be read carefully in proper context to recognize any text inaccuracies. Dictated by: Rosa M Hodge M.D. on 09/12/2021 at 16:29 Approved by: Rosa M Hodge M.D. on 09/12/2021 at 16:32
--- NOTE | 2021-09-12 15:24 | ED_ITS ---
HPI - General Chief complaint: OB/Uterine Contractions Stated complaint: gave 4/5 excessive bleeding Time Seen by Provider: 09/12/21 15:09 Source: patient Mode of arrival: Ambulatory History of Present Illness HPI Narrative: 21-year-old female presents with friend and a chief complaint of a large amount of vaginal bleeding the passage of clots over the course of the day. She is dizzy, weak and lightheaded. She delivered a child vaginally 1 week ago and had been doing okay and started bleeding a bit over the weekend. She had some is a Prostalac all at home and was instructed to take a dose which seemed to slow the bleeding a bit but now her bleeding is back. She has no fever or chills. She denies any pain. She has no runny nose, sore throat or cough. Her OB locally is [facility] but she had to deliver at [place] as there were no beds available here. Related Data Home Medications Medication Instructions Recorded Confirmed albuterol sulfate 90 mcg/actuation 2 puff INHALATION Q6H PRN 02/20/21 07/28/21 aerosol inhaler prenat.vits,eleanor,[id number] 1 tab PO DAILY 02/20/21 07/28/21 citalopram 20 mg tablet 20 mg PO DAILY 09/04/21 09/04/21 Previous Rx's Medication Instructions Recorded misoprostol 200 mcg tablet See Rx Instructions .ROUTE 09/12/21 .COMPLEX #3 tab Allergies Allergy/AdvReac Type Severity Reaction Status Date / Time Penicillins AdvReac Severe Bad hives Verified 02/27/21 12:10 that last for weeks Review of Systems Review of Systems Narrative: GENERAL: See HPI HEENT: Denies sinus pain, ear pain, sore throat, difficulty swallowing, dizziness. RESPIRATORY: Denies dyspnea, cough, wheezing, hemoptysis, sputum. CARDIOVASCULAR: Denies chest pain, palpitations, orthopnea, edema, GASTROINTESTINAL: Denies nausea, vomiting, abdominal pain, diarrhea, constipation, melena. : See HPI MUSCULOSKELETAL: denies weakness, joint pain, or bony pain SKIN: Denies rash, skin lesions, or other NEUROLOGIC: Denies weakness, headache, numbness, change in speech, confusion, seizures, incoordination. PSYCHIATRIC: No concerning psychosocial issues. 12 point review of systems is negative except for those stated above Exam Narrative Exam Narrative: GENERAL: [21 year old patient appears stated age. Well-developed patient, in mild distress. HEAD: Atraumatic. Normocephalic. EYES: Pupils equal round and reactive. Extraocular motions intact. No scleral icterus. No injection or drainage. ENT: Nose without bleeding, purulent drainage. Throat without erythema, tonsillar hypertrophy or exudate. Airway patent. NECK: Trachea midline. Non tender CARDIOVASCULAR: Regular rate and rhythm without murmurs, gallops, or rubs. RESPIRATORY: Clear to auscultation. Breath sounds equal bilaterally. No wheezes, rales, or rhonchi. GASTROINTESTINAL: Abdomen soft, non-tender, nondistended. EXTREMITIES: No edema or joint tenderness. BACK: Nontender without deformity or crepitance. No flank tenderness. NEURO: AOx3. SKIN: No rash or erythema of visible areas Initial Vital Signs Initial Vital Signs: Vital Signs Temperature 98.8 F 09/12/21 15:02 Pulse Rate 84 09/12/21 15:02 Respiratory Rate 18 09/12/21 15:02 Blood Pressure 129/89 09/12/21 15:02 Pulse Oximetry 98 09/12/21 15:02 Course Orders Ordered: ED Orders 09/12/21 15:21 US pelvic complete Stat 09/12/21 15:30 Complete Blood Count AUTO DIFF Stat Comprehensive Metabolic Panel Stat HCG Quantitative /Beta subunit Stat Ictotest Urine Stat Type and Screen Stat Urinalysis and Microscopic Stat Urine Culture Stat 09/12/21 16:56 COVID19 -Nasal RAPID/Pre-Proc Stat Discontinued Medications Misoprostol (Misoprostol 200 Mcg Tablet) 600 mcg SL NOW ONE Stop: 09/12/21 17:46 Last Admin: 09/12/21 18:03 Dose: 600 mcg Documented by: NIKI Vital Signs Vital signs: Vital Signs - 8 hr 09/12/21 15:02 09/12/21 17:25 Temperature 98.8 F Pulse Rate 84 88 Respiratory Rate 18 16 Blood Pressure 129/89 133/84 Pulse Oximetry 98 97 MDM - OB/Uterine Contractions Lab Data Result diagrams: 09/12/21 15:30 09/12/21 15:30 Labs: Lab Results 09/12/21 09/12/21 09/12/21 Range/Units 15:30 15:30 15:30 WBC 9.1 (4.5-11.0) X10^3/uL RBC 4.03 (4.0-5.2) X10^6/uL Hgb 11.3 L (12.0-16.0) g/dL Hct 34.7 L (36-46) % MCV 86.0 (80-100) fL MCH 28.1 (26-34) PG MCHC 32.7 (30-36) % RDW 14.2 (11.6-14.8) % Plt Count 358 (150-400) X10^3/uL Neut % (Auto) 65.4 (50-75) % Lymph % (Auto) 23.8 L (25-40) % [place] % (Auto) 6.5 (3-14) % Eos % (Auto) 3.3 (2-4) % Baso % (Auto) 1.0 (0-2) % Neut # (Auto) 6000 (9941-5598) /uL Lymph # (Auto) 2200 (7107-1138) /uL [place] # (Auto) 600 (0-900) /uL Eos # (Auto) 300 (0-450) /uL Baso # (Auto) 100 (0-100) /uL Sodium 140 (137-145) mmol/L Potassium 4.0 (3.4-5.1) mmol/L Chloride 107 (98-107) mmol/L Carbon Dioxide 25 (22-32) mmol/L BUN 11 (7-17) mg/dL Creatinine 0.65 (0.52-1.04) mg/dL Estimated GFR > 60.0 (>60) mL/min BUN/Creatinine Ratio 16.9 (6-22) Glucose 94 (70-100) mg/dL Calcium 9.2 (8.4-10.2) mg/dL Total Bilirubin 0.6 (0.2-1.3) mg/dL AST 32 (14-36) IU/L ALT 45 H (<35) IU/L Alkaline Phosphatase 91 (38-126) U/L Total Protein 7.2 (6.3-8.2) g/dL Albumin 3.8 (3.5-5.0) g/dL Globulin 3.4 (1.7-4.1) g/dL Albumin/Globulin Ratio 1.1 (1.0-2.8) HCG, Quant 140.5 mIU/mL Urine Color Urine Appearance Urine pH (4.5-8.0) Ur Specific [place] (1.000-1.035) Urine Protein (Negative) Urine Glucose (UA) (Negative) g/dL Urine Ketones (NEGATIVE) Urine Occult Blood (Negative) Urine Nitrate (Negative) Urine Bilirubin (NEGATIVE) Ur Bilirubin Confirm (Negative) Urine Urobilinogen (0.2) E.U./dL Ur Leukocyte Esterase (NEGATIVE) Urine RBC (0-5/HPF) Urine WBC (0-5/HPF) Urine Bacteria (None) Ur Culture Indicated? Blood Type A Positive Antibody Screen Negative 09/12/21 Range/Units 15:30 WBC (4.5-11.0) X10^3/uL RBC (4.0-5.2) X10^6/uL Hgb (12.0-16.0) g/dL Hct (36-46) % MCV (80-100) fL MCH (26-34) PG MCHC (30-36) % RDW (11.6-14.8) % Plt Count (150-400) X10^3/uL Neut % (Auto) (50-75) % Lymph % (Auto) (25-40) % [place] % (Auto) (3-14) % Eos % (Auto) (2-4) % Baso % (Auto) (0-2) % Neut # (Auto) (9574-2215) /uL Lymph # (Auto) (4995-8625) /uL [place] # (Auto) (0-900) /uL Eos # (Auto) (0-450) /uL Baso # (Auto) (0-100) /uL Sodium (137-145) mmol/L Potassium (3.4-5.1) mmol/L Chloride (98-107) mmol/L Carbon Dioxide (22-32) mmol/L BUN (7-17) mg/dL Creatinine (0.52-1.04) mg/dL Estimated GFR (>60) mL/min BUN/Creatinine Ratio (6-22) Glucose (70-100) mg/dL Calcium (8.4-10.2) mg/dL Total Bilirubin (0.2-1.3) mg/dL AST (14-36) IU/L ALT (<35) IU/L Alkaline Phosphatase (38-126) U/L Total Protein (6.3-8.2) g/dL Albumin (3.5-5.0) g/dL Globulin (1.7-4.1) g/dL Albumin/Globulin Ratio (1.0-2.8) HCG, Quant mIU/mL Urine Color Red Urine Appearance Cloudy Urine pH 5.0 (4.5-8.0) Ur Specific [place] 1.025 (1.000-1.035) Urine Protein 3+ H (Negative) Urine Glucose (UA) Negative (Negative) g/dL Urine Ketones Trace H (NEGATIVE) Urine Occult Blood 3+ H (Negative) Urine Nitrate Positive H (Negative) Urine Bilirubin 1+ H (NEGATIVE) Ur Bilirubin Confirm Positive H (Negative) Urine Urobilinogen 1.0 (0.2) E.U./dL Ur Leukocyte Esterase 1+ H (NEGATIVE) Urine RBC 10-30/hpf H (0-5/HPF) Urine WBC 5-10/hpf H (0-5/HPF) Urine Bacteria Few (2-10) H (None) Ur Culture Indicated? 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 Procedure: US pelvic complete Ordering Provider: Henrique Romero D.O. PROCEDURE:? US PELVIC COMPLETE ? INDICATIONS:? vaginal bleeding, delivery 09/05 ? TECHNIQUE:? Real-time scanning was performed of the pelvic organs, with image document ation.? Additional endovaginal scanning was necessary due to incomplete visualization of the adnexal and endometrial structures by transabdominal scanning.? ? COMPARISON:? [facility], OB LIMITED, 09/04/2021, 15:05.? [facility], OB TRANSVAGINAL, 06/22/2021, 19:12.? [facility], [facility] OB <= 14 WEEKS FETUS, 02/27/2021, 12:40.? [facility], US, US OB <= 14 WEEKS FETUS, 02/10/2021, 12:15. ? FINDINGS:? ?? Uterus:? Uterus is anteverted and mildly increased in size at 11.0 x 6.7 x 7.7 cm. The myometrium is heterogeneous. ? The endometrium measures 29 mm combined thickness.? Endometrium is heterogeneous.? Minimal scattered areas of increased vascularity are noted. ? Ovaries:? The right ovary measures 3.6 x 1.7 x 2.1 cm. The left ovary measures 2.6 x 1.5 x 1.9 cm. The ovaries have a normal sonographic appearance. Less than 12 follicles can be seen in each ovary.? No adnexal masses are seen. ? Other:? No pathologic free abdominal or pelvic fluid. ? ? IMPRESSION:? ? Thickened heterogeneous endometrium with minimal scattered areas of increased vascularity.? While retained products of conception cannot be definitively excluded, infection such as endometritis should be considered and short interval ultrasound follow-up obtained. ? We strive to produce accurate, complete, and clear reports of imaging services. To assist us in improving patient care, this report was composed using standard report templates and voice recognition software. Therefore, it may contain abnormal punctuation, insertions and/or omissions. Occasional wrong-word or sound-alike substitutions may occur. Though we review the report and make efforts to correct it, we do víctor mmend that the report be read carefully in proper context to recognize any text inaccuracies. ? ? Dictated by: Rosa M Hodge M.D. on 09/12/2021 at 16:29 ? ? Approved by: Rosa M Hodge M.D. on 09/12/2021 at 16:32 MDM Narrative Medical decision making narrative: Discussed with on-call OB, Dr. Mario, he has reviewed the clinical course to this point as well as the ultrasound. His opinion is that this is unlikely to be retained products, we also discussed the possibility of infectious process but patient has no pain, fever or elevated white blood cell count. He recommends administering Cytotec 600 mcg with a repeat dose tomorrow and extensive return precautions including increased bleeding, fever, chills and other Discharge Plan Departure Patient Disposition: Home Clinical Impression: Abnormal vaginal bleeding Instructions: DI for Vaginal Bleeding Activity Restrictions/Additional Instructions: *You have been diagnosed with [vaginal bleeding] *What to do: *Please continue to take your regular medications as directed. [ ] New medication prescriptions sent to your pharmacy: [ ] [x] New medication written as a paper prescription [ ] No new medications given *Please follow up with your primary OB provider in 2-3 days, call for an appointment. Let them know you were seen in the Emergency Department and that we ask that you be seen in follow up. We will electronically transmit a record of today's note if your PCP is in our system *If you do not have a primary care provider please contact the [facility] Resource line at [phone]. They will ask some questions about your medical history and help get you set up with a doctor in the community. *Return to Emergency Department if you should have any new, worsening or concerning symptoms, such as [fever greater than 101 F, shaking chills, worsening pain, persistent vomiting, bleeding through more than 1 pad per hour for multiple hours or other bothersome symptoms] Prescriptions: New misoprostol 200 mcg tablet See Rx Instructions .ROUTE .COMPLEX Qty: 3 0RF Rx Instructions: 600 mcg orally No Action prenat.vits,eleanor,[id number] Tablet 1 tab PO DAILY 0RF albuterol sulfate 90 mcg/actuation HFA aerosol inhaler 2 puff inhalation Q6H PRN0RF citalopram 20 mg tablet 20 mg PO DAILY 0RF Label Comments: Take 1 tablet By Mouth once a day Referrals: [facility] CNM [Primary Care Provider] -
[2021-09-12 15:40] LABS: Add Manual Diff / Slide Review NO; Basophils Absolute Auto 100 /uL (0-100); Eosinophils Absolute Auto 300 /uL (0-450); Eosinophils Percent Auto 3.3 % (2-4); Hematocrit 34.7 % (36-46); Hemoglobin 11.3 g/dL (12.0-16.0); Lymphocytes Absolute Auto 2200 /uL (1100-4500); Lymphocytes Percent Auto 23.8 % (25-40); Mean Corpuscular HGB Conc 32.7 % (30-36); Mean Corpuscular Hemoglobin 28.1 PG (26-34); Monocytes Absolute Auto 600 /uL (0-900); Monocytes Percent Auto 6.5 % (3-14); Neutrophils Absolute Auto 6000 /uL (1500-7000); Neutrophils Percent Auto 65.4 % (50-75); Platelet Count 358 X10^3/uL (150-400); Red Blood Cell Count 4.03 X10^6/uL (4.0-5.2); Red Cell Distribution Width 14.2 % (11.6-14.8); White Blood Cell Count 9.1 X10^3/uL (4.5-11.0)
[2021-09-12 16:08] LABS: Alanine Aminotransferase 45 IU/L (<35); Albumin 3.8 g/dL (3.5-5.0); Albumin Globulin Ratio 1.1 (1.0-2.8); Alkaline Phosphatase 91 U/L (38-126); Aspartate Aminotransferase 32 IU/L (14-36); BUN Creatinine Ratio 16.9 (6-22); Bilirubin Total 0.6 mg/dL (0.2-1.3); Blood Urea Nitrogen 11 mg/dL (7-17); Calcium 9.2 mg/dL (8.4-10.2); Carbon Dioxide 25 mmol/L (22-32); Chloride 107 mmol/L (98-107); Estimated Glomerular Filt Rate > 60.0 mL/min (>60); Globulin 3.4 g/dL (1.7-4.1); Glucose 94 mg/dL (70-100); HEMOLYSIS < 15 (0-50); Sodium 140 mmol/L (137-145); Total Protein 7.2 g/dL (6.3-8.2)
[2021-09-12 16:25] LABS: HCG Quantitative /Beta subunit 140.5 mIU/mL
[2021-09-12 17:25] VITALS: BP 133/84; PULSE 88; RESP 16; O2SAT 97
[2021-09-12 17:40] LABS: Appearance Urine UA CLOUDY; Bilirubin Urine UA 1+ (NEGATIVE); Color Urine UA RED; Glucose Urine UA NEGATIVE (Negative); Ketones Urine UA TRACE (NEGATIVE); Leukocyte Esterase Urine UA 1+ (NEGATIVE); Nitrite Urine UA POSITIVE (Negative); Occult Blood Urine UA 3+ (Negative); Protein Urine UA 3+ (Negative); Specific Gravity Urine UA 1.025 (1.000-1.035)
[2021-09-12 17:47] LABS: RBC Urine 10-30/HPF (0-5/HPF); WBC Urine 5-10/HPF (0-5/HPF)
[2021-09-12 17:48] LABS: Bacteria Urine Few (2-10); Culture Indicated Urine Specimen Cultured
[2021-09-12 17:50] LABS: Ictotest Urine Positive (Negative)
[2021-09-12] MEDS: miSOPROStoL 200 MCG TABLET 600 MCG SL (18:03)
[2021-09-12 18:44] VITALS: BP 132/87; PULSE 75; RESP 16; O2SAT 99
== END 2021-09-12 18:47 | disposition home or self-care (01) ==
PROVIDERS: Emergency Provider Emergency Medicine; PCP Nurse Practitioner Obstetrics & Gynecology
DX: O72.2 Delayed and secondary postpartum hemorrhage (principal)
CPT/HCPCS: 36415; 76830; 76856; 80053; 81001; 84702; 85025; 86850; 86900; 86901; 87086; 99284; S0191

== ENCOUNTER → 2022-12-18 13:50 | Outpatient (CLI) | payer OTHER, MEDICAID, SELFPAY ==
[2022-12-18 20:11] LABS: Add Manual Diff / Slide Review NO; Basophils Absolute Auto 100 /uL (0-100); Basophils Percent Auto 1.1 % (0-2); Eosinophils Absolute Auto 400 /uL (0-450); Hematocrit 44.5 % (36-46); Hemoglobin 15.1 g/dL (12.0-16.0); Lymphocytes Absolute Auto 2100 /uL (1100-4500); Lymphocytes Percent Auto 36.6 % (25-40); Mean Corpuscular HGB Conc 33.9 % (30-36); Mean Corpuscular Hemoglobin 27.8 PG (26-34); Mean Corpuscular Volume 81.9 fL (80-100); Monocytes Absolute Auto 400 /uL (0-900); Monocytes Percent Auto 7.4 % (3-14); Neutrophils Absolute Auto 2900 /uL (1500-7000); Neutrophils Percent Auto 48.9 % (50-75); Platelet Count 238 X10^3/uL (150-400); Red Blood Cell Count 5.43 X10^6/uL (4.0-5.2); Red Cell Distribution Width 14.3 % (11.6-14.8); White Blood Cell Count 5.9 X10^3/uL (4.5-11.0)
[2022-12-18 20:46] LABS: Testosterone 450 ng/dL (5.71-77.0)
[2022-12-31 13:11] LABS: Estradiol, Sensitive 32.9
== END ==
PROVIDERS: PCP Nurse Practitioner Obstetrics & Gynecology; Visit Provider Nurse Practitioner Women's Health
DX: E34.9 Endocrine disorder, unspecified (principal); F64.8 Other gender identity disorders; F64.9 Gender identity disorder, unspecified; Z79.899 Other long term (current) drug therapy
CPT/HCPCS: 82670; 84403; 85025

== ENCOUNTER → 2024-02-13 14:08 | Outpatient (CLI) | payer OTHER, MEDICAID, SELFPAY ==
[2024-02-13 20:11] LABS: Hemoglobin 14.1 g/dL (12.0-16.0)
[2024-02-13 20:51] LABS: Estradiol, Total 194.6 pg/mL
[2024-02-13 20:53] LABS: Testosterone 51.2 ng/dL (5.71-77.0)
== END ==
PROVIDERS: PCP Family Medicine; Visit Provider Nurse Practitioner Women's Health
DX: E34.9 Endocrine disorder, unspecified (principal); F64.8 Other gender identity disorders; F64.9 Gender identity disorder, unspecified; Z79.899 Other long term (current) drug therapy
CPT/HCPCS: 82670; 84403; 85018

== ENCOUNTER → 2024-11-09 13:11 | Outpatient (CLI) | payer OTHER, SELFPAY ==
[2024-11-09 19:07] LABS: Add Manual Diff / Slide Review NO; Basophils Absolute Auto 0 /uL (0-100); Basophils Percent Auto 0.7 % (0-2); Eosinophils Absolute Auto 400 /uL (0-450); Eosinophils Percent Auto 6.2 % (2-4); Hematocrit 43.8 % (36-46); Hemoglobin 15.2 g/dL (12.0-16.0); Lymphocytes Absolute Auto 2800 /uL (1100-4500); Lymphocytes Percent Auto 41.7 % (25-40); Mean Corpuscular HGB Conc 34.8 % (30-36); Mean Corpuscular Hemoglobin 31.1 PG (26-34); Mean Corpuscular Volume 89.4 fL (80-100); Monocytes Absolute Auto 600 /uL (0-900); Monocytes Percent Auto 8.7 % (3-14); Neutrophils Absolute Auto 2900 /uL (1500-7000); Neutrophils Percent Auto 42.7 % (50-75); Platelet Count 273 X10^3/uL (150-400); Red Blood Cell Count 4.91 X10^6/uL (4.0-5.2); Red Cell Distribution Width 12.5 % (11.6-14.8); White Blood Cell Count 6.8 X10^3/uL (4.5-11.0)
[2024-11-09 19:17] LABS: Alanine Aminotransferase 14 IU/L (<35); Albumin 4.6 g/dL (3.5-5.0); Albumin Globulin Ratio 1.8 (1.0-2.8); Alkaline Phosphatase 50 U/L (38-126); Aspartate Aminotransferase 27 IU/L (14-36); Blood Urea Nitrogen 13 mg/dL (7-17); Calcium 9.9 mg/dL (8.4-10.2); Carbon Dioxide 29 mmol/L (22-32); Chloride 102 mmol/L (98-107); Cholesterol 104 mg/dL (140-199); Estimated Glomerular Filt Rate > 60 mL/min (>60); Globulin 2.5 g/dL (1.7-4.1); Glucose 92 mg/dL (70-99); HDL Cholesterol 32 mg/dL (40-60); HEMOLYSIS 21 (0-50); LDL Cholesterol Calculated 54 mg/dL (<100); Potassium 4.9 mmol/L (3.4-5.1); Sodium 139 mmol/L (137-145); Total Protein 7.1 g/dL (6.3-8.2); Triglycerides 90 mg/dL (35-150)
[2024-11-09 19:29] LABS: LDL Cholesterol Direct 50 mg/dL (<100)
[2024-11-09 19:44] LABS: Thyroid Stimulating Hormone 1.62 uIU/mL (0.47-4.68)
[2024-11-09 19:46] LABS: Estradiol, Total 29.7 pg/mL
[2024-11-09 19:50] LABS: Testosterone 848 ng/dL (5.71-77.0)
== END ==
PROVIDERS: PCP Family Medicine; Visit Provider Family Medicine
DX: Z13.6 Encounter for screening for cardiovascular disorders (principal); Z13.1 Encounter for screening for diabetes mellitus; F41.9 Anxiety disorder, unspecified; F64.9 Gender identity disorder, unspecified; R63.4 Abnormal weight loss
CPT/HCPCS: 80053; 80061; 82670; 83721; 84403; 84443; 85025

== ENCOUNTER → 2025-05-11 11:52 | Outpatient (CLI) | payer OTHER, SELFPAY | PROVIDERS: PCP Family Medicine; Referring Provider Family Medicine; Visit Provider Family Medicine | DX: Z79.890 Hormone replacement therapy (principal) | CPT/HCPCS: 84403 ==